=== PATIENT | female | born 1990 | race Two or more races ===

== ENCOUNTER 2018-05-11 22:58 | Emergency (ER) | payer SELFPAY ==
[~2018-05-11] VITALS: Ht 167.6 cm; Wt 44.5 kg
[2018-05-11 23:30] VITALS: BP 106/81
--- NOTE | 2018-05-11 23:35 | NUR ---
ED Nurse Note: pt refused assessment, states she is okay. will cont monitor. no sx resp distress, resp even and unlabored on RA, airway intact. AA&ox4, gcs=15.
--- NOTE | 2018-05-11 23:45 | NUR ---
ED Nurse Note: pt brought in by coworker from work for medical clearance, for tox screen. ERMD aware. will cont monitor.
--- NOTE | 2018-05-11 23:50 | NUR ---
ED Nurse Note: urine specimen sent, SAVANAH Palencia witnessed.
[2018-05-12 00:07] LABS: APPEARANCE,URINE CLEAR; BILIRUBIN, URINE NEGATIVE (NEGATIVE); COLOR,URINE PALE YELLOW; GLUCOSE, URINE (UA) NEGATIVE (NEGATIVE); KETONES,URINE NEGATIVE (NEGATIVE); LEUKOCYTE ESTERASE ,URINE NEGATIVE (NEGATIVE); NITRITE,URINE NEGATIVE (NEGATIVE); PH,URINE 6 (4.5-8.0); PROTEIN,URINE NEGATIVE (NEGATIVE); UROBILINOGEN,URINE NORMAL MG/DL (0.0-1.0)
--- NOTE | 2018-05-12 00:30 | NUR ---
ED Nurse Note: pt refused blood draw, showed aggressive behavior, ERMD aware, will try again.
--- NOTE | 2018-05-12 00:30 | NUR ---
Robert dickson in EDM - 05/12/18 at 0152 by [email or web address] ED Nurse Note: urine specimen sent, SAVANAH hamilton
--- NOTE | 2018-05-12 00:50 | NUR ---
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 pt calmed via comfort measures and educated regarding blood draw work. pt stated she will try. pt tolerated blood draw well, lab specimen obtained and sent.
--- NOTE | 2018-05-12 01:47 | Emergency Room Report ---
History of Present Illness General Chief Complaint: General Complaint Source: Patient Present Illness HPI Patient is brought in by her employer. She was altered at work. She admits to drinking alcohol. She says both her parents are ill at this time. They're in [place]. She's been drinking heavily for the last 3 days. She's tried AA in the past and it wasn't helpful for her. She denies suicidal or homicidal ideation at this time She's not been sexually active for 2 months. No fevers, chills, chest pain, palpitations, nausea, vomiting, diarrhea, dysuria , abdominal pain, shortness of breath, visual changes, headache. Allergies: Coded Allergies: No Known Allergies (Unverified , 05/11/18) Patient History Past Medical History: see triage record Social History: Reports: alcohol use; Denies: smoking, drug use Social History Narrative Employed Last Menstrual Period: 03/17/2018 Now: No Reviewed Nursing Documentation: PMH: Agreed; PSxH: Agreed Nursing Documentation-PMH Past Medical History: No Stated History Review of Systems All Other Systems: negative except mentioned in HPI Physical Exam Vital Signs Date Time Temp Pulse Resp B/P (MAP) Pulse Ox O2 Delivery O2 Flow Rate FiO2 05/11/18 23:25 97.9 91 16 106/81 99 Room Air General Appearance: well appearing, no apparent distress, GCS 15, other - Slurred speech Head: normocephalic, atraumatic Eyes: bilateral eye normal inspection, bilateral eye PERRL, bilateral eye EOMI , bilateral eye Scleral Injection ENT: hearing grossly normal, normal voice, moist mucus membranes Neck: full range of motion, supple Respiratory: lungs clear, no respiratory distress, speaking full sentences Cardiovascular #1: regular rate, rhythm Cardiovascular #2: 2+ radial (R) Gastrointestinal: normal inspection, normal bowel sounds, non tender Musculoskeletal: back normal, digits/nails normal, gait/station normal, normal range of motion Neurologic: alert, oriented x3, 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 Differential includes alcohol intoxication, drug ingestion. We requested to do blood alcohol and toxicology screen. These are ordered. When the patient was accompanied to provide a urinalysis she requested the staff to substitute clear urine or add water. She was argumentative about having her blood drawn. However this was accomplished using hydrogen peroxide. Urine tox screen negative. Blood alcohol positive. Discussed these results with the patient. Also discussed her seeking help for the life situational stress she has at this time. Patient stable for outpatient observation and treatment. Laboratory Tests Test 05/11/18 23:58 05/12/18 00:49 Urine Color Pale yellow Urine Appearance Clear Urine pH 6 (4.5-8.0) Urine Specific [place] 1.010 (1.005-1.035) Urine Protein Negative (NEGATIVE) Urine Glucose (UA) Negative (NEGATIVE) Urine Ketones Negative (NEGATIVE) Urine Blood Negative (NEGATIVE) Urine Nitrite Negative (NEGATIVE) Urine Bilirubin Negative (NEGATIVE) Urine Urobilinogen Normal MG/DL (0.0-1.0) Urine Leukocyte Esterase Negative (NEGATIVE) Urine HCG, Qualitative Negative (NEGATIVE) Urine Opiates Screen Negative (NEGATIVE) Urine Barbiturates Screen Negative (NEGATIVE) Phencyclidine (PCP) Screen Negative (NEGATIVE) Urine Amphetamines Screen Negative (NEGATIVE) Urine Benzodiazepines Screen Negative (NEGATIVE) Urine Cocaine Screen Negative (NEGATIVE) Urine Marijuana (THC) Screen Negative (NEGATIVE) Serum Alcohol 257 mg/dL Last Vital Signs Date Time Temp Pulse Resp B/P (MAP) Pulse Ox O2 Delivery O2 Flow Rate FiO2 05/12/18 01:55 97.9 70 16 110/84 98 Room Air Status: improved Disposition: HOME, SELF-CARE Condition: Improved Scripts No Active Prescriptions or Reported Meds Juan Khan MD May 12, 2018 01:47
[2018-05-12 01:55] VITALS: BP 110/84
--- NOTE | 2018-05-12 01:55 | NUR ---
Ed Nurse Note: pt is cleared to be DC per ERMD, pt discharge and aftercare instruction provided and given to coworker for medical clearance, pt education done via discussion and handout, pt advised to follow up with pcp/alcoholic rehab or return to ED if sx worsen or new sx develop, pt verbalized understanding and agrees with plan, pt vss, ambulatory w/ steady gait, all belongiongs left w/ pt, wristband removed.
== END 2018-05-12 01:55 | disposition home or self-care (01) ==
LOC: EDBD → EMR 23:30
DX: R41.82 Altered mental status, unspecified (principal); F10.129 Alcohol abuse with intoxication, unspecified
CPT/HCPCS: 36415; 80307; 81003; 81025; 99283; G0480; 80329

== ENCOUNTER 2018-05-12 14:36 | Emergency (ER) | payer SELFPAY ==
[~2018-05-12] VITALS: Ht 160 cm; Wt 49.9 kg
[2018-05-12 14:54] VITALS: BP 109/83
--- NOTE | 2018-05-12 15:11 | Emergency Room Report ---
History of Present Illness General Chief Complaint: General Complaint Source: Patient Present Illness HPI 27-year-old female with no significant past medical history here for follow-up after an intoxication yesterday. Patient was brought in by one of her coworkers yesterday due to alcohol intoxication to be screened. Blood alcohol levels were done yesterday and showed high numbers. Patient gave a copy of the aftercare instructions which indicates intoxication is one of the diagnoses to her employer. Employer call today for the results however we told him that we cannot disclosed confidential information. Patient is here today for follow-up and also collecting the lab results from yesterday. Patient is asking for changing of the diagnosis for yesterday and also a note for today that mentions that she is not intoxicated. Patient appears in no distress, stable, not disheveled, known smell or sign of alcohol intoxication, chest pain, abdominal pain, nausea vomiting, palpitation, and all other associated symptoms. Allergies: Coded Allergies: No Known Allergies (Unverified , 05/11/18) Patient History Past Medical History: see triage record Past Surgical History: unable to obtain Pertinent Family History: none Now: No Immunizations: UTD Reviewed Nursing Documentation: PMH: Agreed; PSxH: Agreed Nursing Documentation-PMH Past Medical History: No Stated History Review of Systems All Other Systems: negative except mentioned in HPI Physical Exam Vital Signs Date Time Temp Pulse Resp B/P (MAP) Pulse Ox O2 Delivery O2 Flow Rate FiO2 05/12/18 14:44 98.1 102 17 109/83 99 Room Air Sp02 EP Interpretation: reviewed, normal General Appearance: normal inspection, well appearing Head: normocephalic, atraumatic Eyes: bilateral eye normal inspection, bilateral eye PERRL ENT: normal ENT inspection Neck: normal inspection, full range of motion Respiratory: normal inspection, chest non-tender, lungs clear Cardiovascular #1: normal inspection, regular rate, rhythm, no murmur Gastrointestinal: normal inspection, soft Rectal: deferred Musculoskeletal: normal inspection, back normal, gait/station normal Neurologic: normal inspection, alert, oriented x3, responsive Psychiatric: normal inspection, judgement/insight normal, memory normal Skin: normal inspection, normal color, no rash, warm/dry, palpation normal Lymphatic: normal inspection, no adenopathy Medical Decision Making PA Attestation all diagnosis and treatment plans were reviewed and discussed with my supervising physician Dr. Abarca Diagnostic Impression: Primary Impression: Encounter for generalized patient complaints ER Course 27-year-old female with no significant past medical history here for follow-up after an intoxication yesterday. Patient was brought in by one of her coworkers yesterday due to alcohol intoxication to be screened. Blood alcohol levels were done yesterday and showed high numbers. Patient gave a copy of the aftercare instructions which indicates intoxication is one of the diagnoses to her employer. Employer call today for the results however we told him that we cannot disclosed confidential information. Patient is here today for follow-up and also collecting the lab results from yesterday. Patient is asking for changing of the diagnosis for yesterday and also a note for today that mentions that she is not intoxicated. Patient appears in no distress, stable, not disheveled, known smell or sign of alcohol intoxication, chest pain, abdominal pain, nausea vomiting, palpitation, and all other associated symptoms. Ddx considered but are not limited to intoxication, general complaint, drug use , follow up post intoxication Vital signs: are WNL, pt. is afebrile H&PE are most consistent with follow up post intoxication ORDERS: none required at this time, the diagnosis is clinical ED INTERVENTIONS: None required at this time. DISCHARGE: At this time pt. is stable for d/c to home. Will provide printed patient care instructions, and any necessary prescriptions. Care plan and follow up instructions have been discussed with the patient prior to discharge. I told the patient that I cannot reduce it and notes from yesterday as it is against the law and her employer already has a copy of aftercare instructions for intoxication's from yesterday. I wrote a note indicating a patient is in no distress and no sign of alcohol intoxication noted today no blood alcohol level drawn today as it is not necessary to be drawn when patient is stable and shows no signs of alcohol intoxication I also told the patient that it is entirely up to her whether she wants to show the blood alcohol levels drawn yesterday to her employer. Patient is in the 90 day probation and has been told that she can lose her job depending on incompetency or other reasons already discussed with and contracted with the employer. Last Vital Signs Date Time Temp Pulse Resp B/P (MAP) Pulse Ox O2 Delivery O2 Flow Rate FiO2 05/12/18 14:54 102 17 Room Air 05/12/18 14:54 98.1 109/83 99 Disposition: HOME, SELF-CARE Condition: Stable Scripts No Active Prescriptions or Reported Meds Additional Instructions: patient is here emergency room today appearing stable, sitting comfortably, speaking in full sentences, with good judgment, not disheveled, no sign of intoxication noted today, no shortness of breath, no chest pain, no palpitation , and no other symptoms that will be suggestive of testing for blood alcohol level or other drugs Patient does not appear intoxicated today, 05/12/2018 Janette Walsh May 12, 2018 15:11
[2018-05-12 15:20] VITALS: BP 109/83
--- NOTE | 2018-05-12 15:22 | NUR ---
ER DISCHARGE NOTE: Patient is cleared to be discharged per ERMD, pt is aox4, on room air, with stable vital signs. pt was given dc instructions, pt was able to verbalize understanding, pt is able to ambulate with steady gait. pt took all belongings.
== END 2018-05-12 15:24 | disposition home or self-care (01) ==
LOC: EMR 14:59
DX: Z51.89 Encounter for other specified aftercare (principal); F10.129 Alcohol abuse with intoxication, unspecified
CPT/HCPCS: 99282